=== PATIENT | male | born 2000 | race Two or more races ===

== ENCOUNTER 2018-03-05 20:55 | Emergency (ER) | payer MEDICAID ==
[~2018-03-05] VITALS: Ht 177.8 cm; Wt 70.3 kg
[2018-03-05 21:18] VITALS: BP 121/70
[2018-03-05] MEDS ORDERED: FLEET ENEMA133 ML RECTAL (21:30)
[2018-03-05] MEDS ORDERED: LACTULOSE20 GM/301 ORAL (21:30)
--- NOTE | 2018-03-05 21:30 | Emergency Room Report ---
History of Present Illness General Chief Complaint: Constipation Source: Patient Present Illness HPI Is a 17-year-old male with no past medical. He presents with chief complaint of constipation. His been ongoing for 3-4 days. No trauma. Never had this problem before. He took milk Magnesia changes had diarrhea. Cramping pain. Has fullness in the rectal area but unable to have bowel movement. Denies any other complaint. No fever chills. No vomiting. Allergies: Coded Allergies: No Known Allergies (Unverified , 03/05/18) Patient History Past Medical History: none, see triage record, old chart reviewed Past Surgical History: none Pertinent Family History: none Social History: Denies: smoking Immunizations: other Reviewed Nursing Documentation: PMH: Agreed; PSxH: Agreed Nursing Documentation-PMH Past Medical History: No Stated History Review of Systems Eye: Denies: eye pain, blurred vision ENT: Denies: ear pain, nose congestion, throat swelling Respiratory: Denies: cough, shortness of breath Cardiovascular: Denies: chest pain, palpitations Gastrointestinal: Reports: constipation; Denies: abdominal pain, diarrhea, nausea, vomiting Musculoskeletal: Denies: back pain, joint pain Skin: Denies: rash Neurological: Denies: headache, numbness Endocrine: Denies: increased thirst, increased urine Hematologic/Lymphatic: Denies: easy bruising All Other Systems: negative except mentioned in HPI Physical Exam Vital Signs Date Time Temp Pulse Resp B/P (MAP) Pulse Ox O2 Delivery O2 Flow Rate FiO2 03/05/18 20:59 98.1 73 19 123/73 99 Room Air 98.1 vitals normal Sp02 EP Interpretation: reviewed, normal General Appearance: well appearing, no apparent distress, alert Head: normocephalic, atraumatic Eyes: bilateral eye PERRL, bilateral eye EOMI ENT: hearing grossly normal, normal pharynx Neck: full range of motion, supple, no meningismus Respiratory: chest non-tender, lungs clear, normal breath sounds Cardiovascular #1: regular rate, rhythm, no murmur Gastrointestinal: normal bowel sounds, non tender, no mass, no organomegaly, no bruit, non-distended Musculoskeletal: back normal, gait/station normal, normal range of motion Psychiatric: mood/affect normal Skin: warm/dry Medical Decision Making Diagnostic Impression: Primary Impression: Constipation Qualified Codes: K59.00 - Constipation, unspecified ER Course Patient with constipation. Abdominal exam is benign. No guarding or rebound. We'll discharge home with symptomatic treatment. Last Vital Signs Date Time Temp Pulse Resp B/P (MAP) Pulse Ox O2 Delivery O2 Flow Rate FiO2 03/05/18 21:18 72 18 121/70 97 Room Air 03/05/18 20:59 98.1 98.1 Status: unchanged Disposition: HOME, SELF-CARE Condition: Stable Scripts Lactulose (LACTULOSE*) 20 Gm/30 Ml Solution 30 ML ORAL BID, #240 ML 0 Refills Prov: TRENTON GRAY M.D. 03/05/18 Na Phos,M-B/Na Phos,Di-Ba* (FLEET ENEMA*) 133 Ml Enema 133 ML RECTAL DAILY, #2 UNITS 0 Refills Prov: TRENTON GRAY M.D. 03/05/18 Patient Instructions: Constipation, Adult Additional Instructions: Follow-up with your doctor in 7 days. Increase fluids and fiber. Return if symptom worsen. TRENTON GRAY M.D. Mar 05, 2018 21:30
[2018-03-05 21:42] VITALS: BP 121/70
== END 2018-03-05 21:43 | disposition home or self-care (01) ==
LOC: EMR 21:15
DX: K59.00 Constipation, unspecified (principal)
CPT/HCPCS: 99282

== ENCOUNTER 2018-04-25 05:41 | Emergency (ER) | payer MEDICAID ==
[~2018-04-25] VITALS: Ht 177.8 cm; Wt 68.0 kg
[~2018-04-25 05:41] MED LIST: FLEET ENEMA133 ML RECTAL; LACTULOSE20 GM/301 ORAL
[2018-04-25] MEDS ORDERED: Isovue-300 100ml vial INJ PRN (06:30)
[2018-04-25] MEDS ORDERED: Ketorolac 30mg Inj IV ONE (06:30)
--- NOTE | 2018-04-25 07:01 | Emergency Room Report ---
History of Present Illness General Chief Complaint: Abdominal Pain Source: Patient (Allen Mendez MD) Present Illness HPI Patient was awakened at 4 AM with abdominal pain. Sharp. Periumbilical. Symptoms of pain 8/10 at that time. It's been constant. He denies any vomiting or nausea. He moved his bowels this morning and they were normal. He never had pain like this before. He was seen for constipation several months ago but the pain was different. He denies any fevers or chills at this time. There is no dysuria no hematuria. No appetite now. No URI sy, cough, dyspnea, rashes, joint pain, headache. No medical problems. (Allen Mendez MD) Allergies: Coded Allergies: No Known Allergies (Unverified , 03/05/18) Patient History Past Medical History: see triage record Social History: Denies: smoking, alcohol use, drug use Social History Narrative Student: Computer science Reviewed Nursing Documentation: PMH: Agreed; PSxH: Agreed (Allen Mendze MD) Nursing Documentation-PMH Past Medical History: No Stated History (Allen Mendez MD) Review of Systems All Other Systems: negative except mentioned in HPI (Allen Mendez MD) Physical Exam Vital Signs Date Time Temp Pulse Resp B/P (MAP) Pulse Ox O2 Delivery O2 Flow Rate FiO2 04/25/18 05:58 97.9 87 18 132/84 92 Room Air Sp02 EP Interpretation: reviewed, normal General Appearance: well appearing, no apparent distress, GCS 15 Head: normocephalic Eyes: bilateral eye normal inspection, bilateral eye PERRL ENT: moist mucus membranes Neck: supple Respiratory: lungs clear, normal breath sounds Cardiovascular #1: regular rate, rhythm Cardiovascular #2: 2+ radial (R) Gastrointestinal: normal inspection, normal bowel sounds, no mass, non- distended, no rebound, guarding - Right lower quadrant, tenderness Genitourinary: no CVA tenderness Musculoskeletal: back normal, gait/station normal, normal range of motion Neurologic: alert, oriented x3, grossly normal Psychiatric: mood/affect normal Skin: normal inspection, warm/dry (Allen Mendez MD) Medical Decision Making Diagnostic Impression: Primary Impression: Abdominal pain Qualified Codes: R10.31 - Right lower quadrant pain ER Course Patient presents with periumbilical pain fairly acute onset. Differential includes appendicitis, diverticulitis, urinary tract infection, renal stone, mesenteric adenitis amongst others. Evaluation will be with labs and CT of the abdomen as he does have right lower quadrant pain. Patient be treated with IV hydration and Toradol. WBC normal. CMP lipase normal. UA clear. Pain improved with treatment. CT pending. Patient signed out to Dr. Dickson. (Allen Mendez MD) ER Course Please for to the initial note for the history exam and presentation at this time we were pending the blood work and CT imaging With the history exam and presentation, multiple differentials considered, including but not limited to appendicitis, gastritis, cholecystitis, diverticulitis CT imaging is negative and the appendix does not show any acute abnormality Blood work is also normal patient's repeat examination reveals a soft abdomen and the patient reports that his pain had diminished just prior to receiving the medication Patient remains afebrile given the exam and findings patient is stable for initial conservative outpatient trial Labs Test 04/25/18 06:40 04/25/18 07:20 White Blood Count 5.7 K/UL (4.8-10.8) Red Blood Count 5.83 M/UL (4.70-6.10) Hemoglobin 16.1 G/DL (14.2-18.0) Hematocrit 47.8 % (42.0-52.0) Mean Corpuscular Volume 82 FL (80-99) Mean Corpuscular Hemoglobin 27.7 PG (27.0-31.0) Mean Corpuscular Hemoglobin Concent 33.7 G/DL (32.0-36.0) Red Cell Distribution Width 11.4 % (11.6-14.8) Platelet Count 219 K/UL (150-450) Mean Platelet Volume 8.1 FL (6.5-10.1) Neutrophils (%) (Auto) 53.6 % (45.0-75.0) Lymphocytes (%) (Auto) 33.1 % (20.0-45.0) Monocytes (%) (Auto) 8.5 % (1.0-10.0) Eosinophils (%) (Auto) 3.7 % (0.0-3.0) Basophils (%) (Auto) 1.1 % (0.0-2.0) Sodium Level 140 MMOL/L (136-145) Potassium Level 3.8 MMOL/L (3.5-5.1) Chloride Level 101 MMOL/L (98-107) Carbon Dioxide Level 29 MMOL/L (21-32) Anion Gap 10 mmol/L (5-15) Blood Urea Nitrogen 13 mg/dL (7-18) Creatinine 1.0 MG/DL (0.55-1.30) Estimat Glomerular Filtration Rate > 60 mL/min (>60) Glucose Level 98 MG/DL (74-106) Calcium Level 9.7 MG/DL (8.5-10.1) Total Bilirubin 0.5 MG/DL (0.2-1.0) Aspartate Amino Transf (AST/SGOT) 17 U/L (15-37) Alanine Aminotransferase (ALT/SGPT) 35 U/L (12-78) Alkaline Phosphatase 115 U/L (46-116) Total Protein 8.9 G/DL (6.4-8.2) Albumin 4.5 G/DL (3.4-5.0) Globulin 4.4 g/dL Albumin/Globulin Ratio 1.0 (1.0-2.7) Lipase 174 U/L (73-393) Urine Color Pale yellow Urine Appearance Clear Urine pH 5 (4.5-8.0) Urine Specific [place] 1.025 (1.005-1.035) Urine Protein Negative (NEGATIVE) Urine Glucose (UA) Negative (NEGATIVE) Urine Ketones Negative (NEGATIVE) Urine Blood Negative (NEGATIVE) Urine Nitrite Negative (NEGATIVE) Urine Bilirubin Negative (NEGATIVE) Urine Urobilinogen Normal MG/DL (0.0-1.0) Urine Leukocyte Esterase Negative (NEGATIVE) (Dudley Dickson DO) CT/MRI/US Diagnostic Results CT/MRI/US Diagnostic Results : Impression CT abdomen pelvis: No acute disease refer to note for full specific (Dudley Dickson DO) Status: improved (Allen Mendez MD) Status: improved (Dudley Dickson DO) Disposition: HOME, SELF-CARE Condition: Improved [facility]errals: [facility] (PCP) Additional Instructions: Patient is provided with the discharge instructions notified to follow up with primary doctor in the next 2-3 days otherwise return to the er with any worsening symptoms. Please note that this report is being documented using [employer] technology. This can lead to erroneous entry secondary to incorrect interpretation by the dictating instrument. Allen Mendez MD Apr 25, 2018 07:01 Dudley Dickson DO Apr 25, 2018 09:57
[2018-04-25 07:03] VITALS: BP 127/71
[2018-04-25 07:30] LABS: BASOPHILS % (AUTO) 1.1 % (0.0-2.0); EOSINOPHILS % (AUTO) 3.7 % (0.0-3.0); HEMATOCRIT 47.8 % (42.0-52.0); HEMOGLOBIN 16.1 G/DL (14.2-18.0); LYMPHOCYTES % (AUTO) 33.1 % (20.0-45.0); MEAN CORPUSCULAR VOLUME 82 FL (80-99); MONOCYTES % (AUTO) 8.5 % (1.0-10.0); NEUTROPHILS % (AUTO) 53.6 % (45.0-75.0); PLATELET COUNT 219 K/UL (150-450); RED BLOOD COUNT 5.83 M/UL (4.70-6.10); RED CELL DISTRIBUTION WIDTH 11.4 % (11.6-14.8); WHITE BLOOD COUNT 5.7 K/UL (4.8-10.8)
[2018-04-25 07:38] LABS: ANION GAP 10 mmol/L (5-15); BLOOD UREA NITROGEN 13 mg/dL (7-18); CALCIUM 9.7 MG/DL (8.5-10.1); CARBON DIOXIDE 29 MMOL/L (21-32); CHLORIDE 101 MMOL/L (98-107); POTASSIUM 3.8 MMOL/L (3.5-5.1); SODIUM 140 MMOL/L (136-145)
[2018-04-25 07:40] LABS: APPEARANCE,URINE CLEAR; BILIRUBIN, URINE NEGATIVE (NEGATIVE); COLOR,URINE PALE YELLOW; GLUCOSE, URINE (UA) NEGATIVE (NEGATIVE); KETONES,URINE NEGATIVE (NEGATIVE); LEUKOCYTE ESTERASE ,URINE NEGATIVE (NEGATIVE); NITRITE,URINE NEGATIVE (NEGATIVE); PH,URINE 5 (4.5-8.0); PROTEIN,URINE NEGATIVE (NEGATIVE); UROBILINOGEN,URINE NORMAL MG/DL (0.0-1.0)
[2018-04-25 07:40] LABS: ALANINE AMINOTRANSFERASE 35 U/L (12-78); ALBUMIN 4.5 G/DL (3.4-5.0); ALKALINE PHOSPHATASE 115 U/L (46-116); ASPARTATE AMINO TRANSFERASE 17 U/L (15-37); BILIRUBIN,TOTAL 0.5 MG/DL (0.2-1.0)
--- NOTE | 2018-04-25 09:49 | Diagnostic Imaging Report ---
INDICATION: TECHNIQUE: Multiple, contiguous axial cuts of the abdomen and pelvis are obtained from the lung bases to the ischial tuberosities. Sagittal and coronal reformatted images are available. One or more of the following dose reduction techniques were used: automated exposure control, adjustment of the mA and/or kV according to patient size, use of iterative reconstruction technique. COMPARISON: FINDINGS: The lung bases are clear. The liver and spleen are normal in size and free of mass lesions. The gallbladder, bile ducts and pancreas are normal. The adrenal gland are unremarkable. The kidneys are normal in size and contour. No stones, lesions or hydronephrosis. Small amount of free pelvic fluid, can be physiologic in a young healthy male. The appendix is unremarkable, as is the rest of the GI tract. Aorta is normal caliber. No adenopathy or extraluminal air. The osseous structures are normal. IMPRESSION: Normal noncontrast CT of the abdomen and pelvis. CTDI: 11.66 mGy DLP: 582.43 mGycm
[2018-04-25 10:03] VITALS: BP 123/69
== END 2018-04-25 10:03 | disposition home or self-care (01) ==
LOC: EMR 06:26
DX: R10.31 Right lower quadrant pain (principal)
CPT/HCPCS: 36415; 74177; 80053; 81003; 83690; 85025; 99284; J1885; Q9967

== ENCOUNTER 2019-01-14 01:04 | Emergency (ER) | payer MEDICAID ==
[~2019-01-14] VITALS: Ht 175.3 cm; Wt 72.6 kg
[2019-01-14 01:10] VITALS: BP 159/70
--- NOTE | 2019-01-14 01:10 | NUR ---
ED Nurse Note: pt walked to ED c/o pain 10/10 and discomfort to chest. pt also states it feels like there is pressure. BP 159/70, p 92, T 98.1, RR 17 . pt is aler x4, ambulatory. will continue to monitor.
--- NOTE | 2019-01-14 02:02 | Emergency Room Report ---
History of Present Illness General Chief Complaint: General Complaint Source: Patient Present Illness HPI HPI: Otherwise healthy 18-year-old male presents for evaluation of chest discomfort. States he was in his usual state of health until approximately 1 hour prior to arrival when he began to feel some easiness over his chest which he describes as pressure. This does not radiate. He felt as if his heart was beating fast and took a blood pressure reading at home with a home monitor showing elevated blood pressure in the 150s systolic. He became concerned and sought medical attention at that time. He notes improvement in his chest discomfort since arrival but is still somewhat persistent. He has difficulty fully categorizing it somewhere between a feeling of anxiety/unease and pressure. Otherwise, he denies shortness of breath, recent illness, nausea, vomiting, lightheadedness, vision changes or other symptoms. No family history of heart disease. He takes no medications otherwise well. No history of sudden cardiac at a young age and his family either. PMH: None PSH: None Allergies: Denies Social Hx: Denies alcohol, tobacco or drug use Allergies: Coded Allergies: No Known Allergies (Unverified , 01/14/19) Nursing Documentation-PMH Past Medical History: No Stated History Review of Systems All Other Systems: negative except mentioned in HPI Physical Exam Vital Signs Date Time Temp Pulse Resp B/P (MAP) Pulse Ox O2 Delivery O2 Flow Rate FiO2 01/14/19 01:06 98.2 101 18 164/78 (106) 97 Room Air 01/14/19 01:10 98 General: Awake and alert, no acute distress HEENT: NC/AT. EOMI. Neck: Supple, trachea midline Chest Wall: No tenderness, no deformity Cardiovascular: Borderline tachycardia with rate between 100 105 bpm. S1 and S2 normal. No murmur appreciated Resp: Normal work of breathing. No cough, wheezing or crackles appreciated Abdomen: Abdomen is soft, nondistended. Nontender Skin: Intact. No abrasions, laceration or rash over the exposed skin MSK: Normal tone and bulk. Moving all extremities. No obvious deformity. Neuro: Awake and alert. Mentating appropriately. Medical Decision Making Diagnostic Impression: Primary Impression: Nonspecific chest pain ER Course 18-year-old male presents for evaluation of proxy 1.5 hours chest discomfort. Differential includes but is not limited to ACS, angina, anxiety, esophageal spasm, bronchitis, pneumonia, URI. Given his low risk factors, young age and overall well appearance I have less concern for cardiac causes however we will obtain EKG, chest x-ray and labs. States his symptoms are improving, vital signs are stable and his blood pressure while initially presenting somewhat hypertensive is now improving on its own. EKG Diagnostic Results EKG Time: 02:11 Rate: normal Rhythm: NSR ST Segments: no acute changes Rhythm Strip Diag. Results Rhythm Strip Time: 02:11 EP Interpretation: yes Rate: 88 Rhythm: NSR Chest X-Ray Diagnostic Results Chest X-Ray Diagnostic Results : Chest X-Ray Ordered: Yes # of Views/Limited/Complete: 2 View Indication: Chest Pain EP Interpretation: Yes Interpretation: no consolidation, no effusion, no pneumothorax Impression: No acute disease Electronically Signed by: Electronically signed by Dr. Cali Baker Reevaluation Time: 03:43 Last Vital Signs Date Time Temp Pulse Resp B/P (MAP) Pulse Ox O2 Delivery O2 Flow Rate FiO2 01/14/19 01:10 98.2 86 18 159/70 98 Room Air 01/14/19 01:10 98 Status: improved Reevaluation Impression Lab work shows negative cardiac enzymes and otherwise has returned within normal limits. Patient's tachycardia is resolved. He has no chest pain at this time. His EKG showed normal sinus rhythm without acute ischemic changes, normal axis, normal intervals and overall was unremarkable. Chest x-ray showed no pathology. Given his low risk factors, young age and general well appearance I believe his symptoms may be attributed to either esophageal spasm or anxiety however the patient was encouraged to follow-up with his PMD. We discussed reasons to return to the emergency department patient has family. He will be discharged to follow-up with his PMD Please note that this report is being documented using [employer] technology. This can lead to erroneous entry secondary to incorrect interpretation by the dictating instrument. Disposition: HOME, SELF-CARE Condition: Improved Referrals: [facility] (PCP) Cali Baker MD Jan 14, 2019 02:01
[2019-01-14 02:55] LABS: BASOPHILS % (AUTO) 1.2 % (0.0-2.0); EOSINOPHILS % (AUTO) 0.6 % (0.0-3.0); HEMATOCRIT 49.1 % (42.0-52.0); HEMOGLOBIN 16.2 G/DL (14.2-18.0); LYMPHOCYTES % (AUTO) 9.4 % (20.0-45.0); MEAN CORPUSCULAR VOLUME 84 FL (80-99); MONOCYTES % (AUTO) 5.4 % (1.0-10.0); NEUTROPHILS % (AUTO) 83.4 % (45.0-75.0); PLATELET COUNT 259 K/UL (150-450); RED BLOOD COUNT 5.85 M/UL (4.70-6.10); RED CELL DISTRIBUTION WIDTH 12.2 % (11.6-14.8); WHITE BLOOD COUNT 10.1 K/UL (4.8-10.8)
[2019-01-14 03:01] LABS: ALANINE AMINOTRANSFERASE 34 U/L (12-78); ALBUMIN 4.9 G/DL (3.4-5.0); ALBUMIN/GLOBULIN RATIO 1.3 (1.0-2.7); ALKALINE PHOSPHATASE 120 U/L (46-116); ANION GAP 10 mmol/L (5-15); ASPARTATE AMINO TRANSFERASE 20 U/L (15-37); BILIRUBIN,TOTAL 0.5 MG/DL (0.2-1.0); BLOOD UREA NITROGEN 13 mg/dL (7-18); CALCIUM 9.5 MG/DL (8.5-10.1); CARBON DIOXIDE 27 MMOL/L (21-32); CHLORIDE 101 MMOL/L (98-107); CKMB 0.6 NG/ML (0.0-3.6); CREATINE KINASE 106 U/L (26-308); CREATININE 0.8 MG/DL (0.55-1.30); POTASSIUM 3.8 MMOL/L (3.5-5.1); SODIUM 138 MMOL/L (136-145)
[2019-01-14 03:10] VITALS: BP 140/80
[2019-01-14 03:45] VITALS: BP 138/84
--- NOTE | 2019-01-14 03:45 | NUR ---
ER DISCHARGE NOTE: Patient is cleared to be discharged per ERMD, pt is aox4, on room air, with stable vital signs. pt was given dc instructions, pt was able to verbalize understanding, pt id band and iv site removed without complications. pt is able to ambulate with steady gait. pt took all belongings.
--- NOTE | 2019-01-14 13:20 | Cardiology Report ---
APPROVED REPORT EKG Measurement Heart [id number] Normal sinus rhythm Normal ECG
--- NOTE | 2019-01-14 14:05 | Diagnostic Imaging Report ---
Indication: Chest pain for 2 hours Technique: One view of the chest Comparison: none Findings: The lungs and pleural spaces are clear. The heart size is normal Impression: No acute process
== END 2019-01-14 03:45 | disposition home or self-care (01) ==
LOC: EMR 01:39
DX: R07.89 Other chest pain (principal)
CPT/HCPCS: 36415; 71045; 80053; 82550; 82553; 84484; 85025; 93005; 99284

== ENCOUNTER 2019-04-01 22:47 | Emergency (ER) | payer MEDICAID ==
[~2019-04-01] VITALS: Ht 175.3 cm; Wt 72.6 kg
--- NOTE | 2019-04-01 23:22 | NUR ---
ED Nurse Note: PT AMBULATED FROM HOME TO ED C/O OF HIGH BLOOD PRESSURE PT STATES HE HAS [employer] [employer] APPOINTMENT IN [facility], BUT WAS CONCERNED SO HE CAME IN. BP AT BEDSIDE IS 133/87 Addendum: 04/01/19 at 2327 by PDELEON ED Nurse Note: PT AMBULATED FROM HOME TO ED C/O OF HIGH BLOOD PRESSURE PT STATES HE HAS [employer] APPOINTMENT IN [facility], BUT WAS CONCERNED SO HE CAME IN. BP AT BEDSIDE IS 133/76
[2019-04-01 23:23] VITALS: BP_SYST 133; BP_DIAS 76; BP_DIAS 87
--- NOTE | 2019-04-01 23:36 | Emergency Room Report ---
History of Present Illness General Chief Complaint: Hypertension Source: Patient Present Illness HPI This is a 18-year-old male with no past medical history. He presents with chief complaint of thinking his blood pressure is elevated. Also complained of chest tightness. He has a chest tightness ongoing for over months. He has an appointment with a [employer] assistant manager in May. Today he noticed that his neck as opposed as throbbing in he can see it. He thought he may have high blood pressure. Denies any nausea vomiting. Denies any history of high blood pressure. Nothing made it better. Nothing made it worse. Denies any other complaint. He also has this vague chest tightness across his chest. No change. Allergies: Coded Allergies: No Known Allergies (Unverified , 01/14/19) Patient History Past Medical History: see triage record, old chart reviewed Past Surgical History: none Pertinent Family History: none Social History: Denies: smoking Immunizations: other Reviewed Nursing Documentation: PMH: Agreed; PSxH: Agreed Nursing Documentation-PMH Past Medical History: No Stated History Review of Systems Eye: Denies: eye pain, blurred vision ENT: Denies: ear pain, nose congestion, throat swelling Respiratory: Denies: cough, shortness of breath Cardiovascular: Denies: chest pain, palpitations Gastrointestinal: Denies: abdominal pain, diarrhea, nausea, vomiting Musculoskeletal: Denies: back pain, joint pain Skin: Denies: rash Neurological: Denies: headache, numbness Endocrine: Denies: increased thirst, increased urine Hematologic/Lymphatic: Denies: easy bruising All Other Systems: negative except mentioned in HPI Physical Exam Vital Signs Date Time Temp Pulse Resp B/P (MAP) Pulse Ox O2 Delivery O2 Flow Rate FiO2 04/01/19 23:08 98.4 83 18 140/78 (98) 96 Room Air Sp02 EP Interpretation: reviewed, normal General Appearance: well appearing, no apparent distress, alert Head: normocephalic, atraumatic Eyes: bilateral eye PERRL, bilateral eye EOMI ENT: hearing grossly normal, normal pharynx Neck: full range of motion, supple, no meningismus Respiratory: chest non-tender, lungs clear, normal breath sounds Cardiovascular #1: regular rate, rhythm, no murmur Gastrointestinal: normal bowel sounds, non tender, no mass, no organomegaly, no bruit, non-distended Musculoskeletal: back normal, gait/station normal, normal range of motion Psychiatric: mood/affect normal Medical Decision Making Diagnostic Impression: Primary Impression: Nonspecific chest pain ER Course Patient with no specific chest pain and elevated blood pressure. EKG is normal. I suspect is more anxiety related. Will discharge home. EKG Diagnostic Results Rate: normal Rhythm: NSR ST Segments: no acute changes Rhythm Strip Diag. Results EP Interpretation: yes Rate: 70 Rhythm: NSR Last Vital Signs Date Time Temp Pulse Resp B/P (MAP) Pulse Ox O2 Delivery O2 Flow Rate FiO2 04/01/19 23:23 83 18 Room Air 04/01/19 23:23 98.4 133/76 96 Status: improved Disposition: HOME, SELF-CARE Condition: Stable Additional Instructions: Follow-up with your doctor in 7 days. Keep your appointment with your [employer] assistant manager. Return if symptoms worsen. Roberto Polanco MD Apr 01, 2019 23:36
[2019-04-01 23:43] VITALS: BP 135/88
--- NOTE | 2019-04-01 23:43 | NUR ---
ER DISCHARGE NOTE: Patient is cleared to be discharged per ERMD, pt is aox4, on room air, with stable vital signs. pt was given dc instructions, pt was able to verbalize understanding, pt id band removed. pt is able to ambulate with steady gait. pt took all belongings.
--- NOTE | 2019-04-04 13:58 | Cardiology Report ---
APPROVED REPORT EKG Measurement Heart [id number] Sinus rhythm with premature atrial complexes Rightward axis Borderline ECG
== END 2019-04-01 23:43 | disposition home or self-care (01) ==
LOC: EMR 23:30
DX: R07.9 Chest pain, unspecified (principal)
CPT/HCPCS: 93005; Z7502; 99282

== ENCOUNTER 2020-08-25 00:18 | Emergency (ER) | payer MEDICAID ==
[~2020-08-25] VITALS: Ht 172.7 cm; Wt 74.8 kg
[2020-08-25 00:36] VITALS: BP 128/80
[2020-08-25] MEDS ORDERED: NAPROXEN500 M1 ORAL (00:47)
[2020-08-25] MEDS ORDERED: CEPHALEXIN500 MG ORAL (00:47)
[2020-08-25] MEDS ORDERED: BACTRIM DS TAB1 EAC1 ORAL (00:47)
--- NOTE | 2020-08-25 00:47 | Emergency Room Report ---
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 He went to his primary care doctor 7 days ago when he started to feel the swelling at his gluteal cleft, however the primary doctor did not see an abscess. Instead she performed a back x-ray which was negative. He states that the cyst has progressively gotten larger and then more hard over the last 3 to 4 days. He denies any fever, chills, nausea, vomiting, diarrhea, melena, hematochezia, saddle anesthesia, IV drug use, urinary retention, bowel or bladder incontinence or any other symptoms. The patient's symptoms were gradual onset, severity was moderate, duration since greater than 7 days. Quality: Swollen Past medical histor y: Denies Past surgical history: Denies Smoking: Denies Alcohol use: Denies Drug use: Denies Review of systems: CONST: No fevers or chills, No night sweats PULMONARY: No productive cough, No shortness of breath CARDIAC: No chest pain, No palpitations GI: No vomiting, No diarrhea , No melena_or_BRBPR : No dysuria, No hematuria, No discharge NEURO: No new_focal_weakness_or_numbness, No confusion, No vision changes 14 point Review of Systems is otherwise negative except per HPI Physical Exam: GENERAL: Awake_alert_ nontoxic, no acute distress Spo2 95% on RA -normal EYES: Extraocular muscles are intact. Conjunctivae clear. Lids without swelling ENT: External nose and ear normal_in_appearance. Oropharynx clear. Head_atraumatic, Moist_oral_mucosa NECK: No JVD. No meningismus. No thyromegaly. Supple. Trachea midline RESP: Normal respiratory effort. Symmetric rise. No stridor. Clear_to_auscultation_No_rales_No_wheezes CARDIAC: Regular rate and regular rhytm. No_significant pedal edema. ABDOMEN: Soft. Nondistended. Nontender_No_rebound_or_guarding. Rectal examination: Fully indurated abscess/cyst at the R gluteal cleft. No overlying cellulitis. No palpable fluctuance. No crepitus. No Thomas's gang rachel. MSK: Normal muscle tone, without rigidity. Extremities without asymmetric deformity or swelling. SKIN: Warm and dry. No visible cyanosis or pallor NEUROLOGIC: Alert, oriented x3. Motor_and_sensation_grossly_intact. No truncal ataxia. Gait_normal Psych: Normal mood and affect, normal judgment and insight - COORDINATION OF CARE Case was discussed with: Patient PROCEDURE NOTE Abscess Fine needle aspiration by me: Location: R gluteal cleft Anesthesia: Local 1% Lidocaine Technique: used bedside US to locate 3x2 cyst then did fine needle aspiration with 18G needle to remove 8cc serosanguinous material. Packing: None Complications: Neurovascularly intact post procedure Medical Decision Making/Plan: Differential diagnosis: Soft tissue infection such as cellulitis or abscess, pilonidal cyst, musculoskeletal pain, muscle spasm . Doubt spinal epidural abscess, spinal epidural hematoma Vitals are unremarkable. Exam is consistent with indurated gluteal abscess (at the right gluteal cleft) vs pilonidal cyst vs. No fluctuance noted. I used bedside UltraSound to locate 3x2 cyst vs abscess then anesthetized the region, and did a fine needle aspiration with 18G needle to remove 8cc serosanguinous material. No gross purulent material. Abscess is now > 7 old with no fluctuance. Considered incision, but unlikely to yield purulent material. No incision performed due to high risk for co-infection. Patient has no significant risk factors for spinal epidural emergency such as fever, IVDU, HIV, or anticoagulant use. Patient is neurologically intact without any lower extremity weakness / numbness, saddle anesthesia, urinary retention or fecal incontinence. No evidence of any emergent process of the spinal cord or cauda equina at this time. The patient was counseled that they need to see their primary medical doctor in the next 1 day for reevaluation / wound check. Will DC with keflex, bactrim, and norco/narcan. Instructions for narcan use discussed. Off work note x 1 week. Advised no heavy lifting. Encourage warm water soaks. Pertinent results reviewed with the patient. I educated the patient on the current treatment plan including the risks, benefits, and alternatives. I also discussed the extent and limitations of the current evaluation. The patient expressed understanding and agreement with plan. I recommended PMD follow-up within 1-2 days for referral to general surgeon given likely infected pilonidal cyst. Also advised that the patient return to the Emergency Department as soon as possible if they experience any new, persistent, or worsening symptoms. 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 Nursing Documentation-PMH Past Medical History: No Stated History Physical Exam Vital Signs Date Time Temp Pulse Resp B/P (MAP) Pulse Ox O2 Delivery O2 Flow Rate FiO2 08/25/20 00:30 99.7 89 20 128/80 (96) 100 Room Air Sp02 EP Interpretation: reviewed, normal Medical Decision Making Diagnostic Impression: Primary Impression: Abscess Last Vital Signs Date Time Temp Pulse Resp B/P (MAP) Pulse Ox O2 Delivery O2 Flow Rate FiO2 08/25/20 00:36 99.7 20 128/80 100 Room Air 08/25/20 00:30 89 Disposition: HOME, SELF-CARE Admit Decision Time: 01:30 Condition: Stable Scripts Naloxone HCl (Narcan) 4 Mg Grant 4 MG NS ONCE for opiate od for 1 Day, #1 SPRAY Prov: GrahamVivi masone D.O. 08/25/20 Hydrocodone/Acetaminophen (Hydrocodon-Acetaminophn 10-325) 1 Each Tablet 1 TAB ORAL Q6H PRN for For Pain, #12 TAB 0 Refills Prov: GrahamJason masonShira D.O. 08/25/20 Naproxen* (NAPROXEN*) 500 Mg Tablet.dr 500 MG ORAL TWICE A DAY for 10 Days, #20 TAB Prov: GrahamVivi masone D.O. 08/25/20 Trimethoprim/Sulfamethoxazole 160/800* (BACTRIM DS TABLET*) 1 Each Tablet 1 TAB ORAL Q12H, #14 TAB 0 Refills Prov: Vivi Grahame D.O. 08/25/20 Cephalexin* (KEFLEX*) 500 Mg Capsule 500 MG ORAL EVERY 12 HOURS, #14 CAP 0 Refills Prov: GrahamVivi masone D.O. 08/25/20 Patient Instructions: Abscess Additional Instructions: Instructions for patient/telephone cleaner: Follow up with your physician in 2 days for wound check. Follow-up with your doctor sooner if your condition requires a more timely clinical reevaluation. Return to the emergency department immediately if you feel that your condition is worsening or if you have any new or concerning symptoms. Review your discharge instructions and take any prescriptions given as instructed. [facility] PROVIDES FREE OR LOW-COST HEALTH SERVICES TO PEOPLE WHO CAN SHOW PROOF THAT THEY LIVE IN [facility]. TO FIND MORE CLINICS PARTNERED WITH [facility] TO PROVIDE SERVICE, PLEASE CALL . Shira Graham D.O. Aug 25, 2020 00:47
[2020-08-25] MEDS ORDERED: Lidocaine 1% Plain 30 ml INJ ONE (01:00)
[2020-08-25] MEDS ORDERED: NARCAN4 MG NS (01:34)
[2020-08-25] MEDS ORDERED: NORCO 10/3251 EA ORAL (01:34)
== END 2020-08-25 02:31 | disposition home or self-care (01) ==
LOC: EMR 01:30
DX: L02.31 Cutaneous abscess of buttock (principal)
CPT/HCPCS: 10160; J2001; Z7502; 99282